=== PATIENT | female | born 1980 | race Hispanic/Latino ===

== ENCOUNTER 2017-09-23 19:57 | Emergency (ER) | payer OTHER, BC ==
[2017-09-23 20:14] VITALS: BP 134/55; PULSE 84; RESP 18; TEMP 98.2; O2SAT 100
--- NOTE | 2017-09-23 20:26 | ED PDOC ---
Lower Extremity Pain/Injury Time Seen by Provider: 09/23/17 20:14 Chief Complaint (Nursing): Lower Extremity Problem/Injury Chief Complaint (Provider): Right Ankle Injury History Per: Patient History/Exam Limitations: no limitations Onset/Duration Of Symptoms: Mins (prior to arrival) Current Symptoms Are (Timing): Still Present Additional Complaint(s): Deedee Vidal is a 37 year old female with no significant past medical history who presents to the ED due to a right ankle injury sustained prior to arrival. Patient states she was running when she tripped and injured her ankle. Confirms redness and swelling. PMD: Provider TBD Past Medical History Reviewed: Historical Data, Nursing Documentation, Vital Signs Vital Signs: Last Vital Signs Temp 98.2 F 09/23/17 20:11 Pulse 84 09/23/17 20:11 Resp 18 09/23/17 20:11 BP 134/55 L 09/23/17 20:11 Pulse Ox 100 09/23/17 20:11 - Family History Family History: States: Unknown Family Hx - Home Medications Home Medications: Ambulatory Orders Medication Instructions Recorded Ibuprofen [Motrin] 400 mg PO Q6 #30 tab 09/23/17 - Allergies Allergies/Adverse Reactions: Allergies Allergy/AdvReac Type Severity Reaction Status Date / Time azithromycin [From Zithromax] Allergy RASH Verified 09/23/17 20:11 Review of Systems ROS Statement: Except As Marked, All Systems Reviewed And Found Negative Musculoskeletal: Positive for: Foot Pain (right) Physical Exam - Reviewed Nursing Documentation Reviewed: Yes Vital Signs Reviewed: Yes - Physical Exam Appears: Positive for: Well, Non-toxic, No Acute Distress Head Exam: Positive for: ATRAUMATIC, NORMAL INSPECTION, NORMOCEPHALIC Skin: Positive for: Normal Color, Warm, DRY Eye Exam: Positive for: EOMI, Normal appearance, PERRL Extremity: Positive for: Tenderness (to palpation of right ankle), Swelling ( lateral aspect of right ankle), Other (neurovascularly intact in RLE, skin intact, dorsum of foot normal appearing) Neurologic/Psych: Positive for: Alert, Oriented. Negative for: Motor/Sensory Deficits - ECG O2 Sat by Pulse Oximetry: 100 (RA) Pulse Ox Interpretation: Normal Medical Decision Making Medical Decision Making: Time: 20:15 Initial Impression: Right ankle sprain, rule out fracture Plan: --Tylenol 650 mg PO --X-Ray ankle right 3 views --Reevaluation Time: 20:57 --X-Ray shows no acute fractures --Upon provider evaluation patient is medically stable, and requires no further treatment in the ED at this time. Patient will be discharged home with crutches , Aircast, and Rx for Motrin. Counseling was provided and all questions were answered regarding diagnosis and need for follow up with Podiatry Clinic. There is agreement to discharge plan. Return if symptoms persist or worsen. Scribe Attestation: Documented by Aryan Heath, acting as a scribe for Karly Story PA-C Provider Scribe Attestation: All medical record entries made by the Scribe were at my direction and personally dictated by me. I have reviewed the chart and agree that the record accurately reflects my personal performance of the history, physical exam, medical decision making, and the department course for this patient. I have also personally directed, reviewed, and agree with the discharge instructions and disposition. Disposition - Clinical Impression Clinical Impression: Ankle sprain - Patient ED Disposition Is Patient to be Admitted: No Counseled Patient/Family Regarding: Studies Performed, Diagnosis, Need For Followup, Rx Given - Disposition Referrals: Podiatry Clinic [Outside] Disposition: Routine/Home Disposition Time: 20:57 Condition: STABLE Prescriptions: Ibuprofen [Motrin] 400 mg PO Q6 #30 tab Instructions: Ankle Sprain (ED), Ankle Stirrup Splint (ED), Ankle Exercises ( GEN) Forms: [employer] (Kiswahili)
--- NOTE | 2017-09-24 05:52 | RAD ---
PROCEDURE: Left Foot Radiographs. HISTORY: Twisting injury COMPARISON: September 23, 2017. FINDINGS: BONES: Normal. No fracture. JOINTS: Normal. SOFT TISSUES: Normal. OTHER FINDINGS: None. IMPRESSION: No acute findings related to/accounting for the clinical presentation.
--- NOTE | 2017-09-24 05:52 | RAD ---
PROCEDURE: Right Ankle Radiographs. HISTORY: Twisting injury COMPARISON: September 23, 2017. FINDINGS: BONES: No acute fractures. JOINTS: Normal. No osteoarthritis. Ankle mortise maintained. Talar dome intact SOFT TISSUES: Soft tissue swelling laterally and to lesser extent posteriorly and anteriorly. OTHER FINDINGS: None. IMPRESSION: Soft tissue swelling without acute articular or osseous abnormality.
== END 2017-09-23 21:58 | disposition home or self-care (01) ==
LOC: H.ER 19:57
DX: S93.401A Sprain of unspecified ligament of right ankle, initial encounter (principal); W50.2XXA Accidental twist by another person, initial encounter; Y93.02 Activity, running